=== PATIENT | female | born 1930 | race Caucasian/White ===

== ENCOUNTER 2016-10-25 17:22 | Emergency (ER) | payer MEDICARE ==
[~2016-10-25] VITALS: Ht 160 cm; Wt 60.0 kg
[~2016-10-25 17:22] MED LIST: ASPI-558 PO; CARV3.1232 PO; GABA-215 PO; LANS30CA44 PO; OMEP20TA24 PO; SIMV20TA89 PO; TRAM-277 PO
[2016-10-25 17:25] VITALS: Ht 160 cm; Wt 60.0 kg
[2016-10-25] MEDS ORDERED: NITROGLYCERIN 0.4 MG SUBLINGUAL TABLET SL PRN (17:45)
[2016-10-25] MEDS ORDERED: ASPIRIN 81 MG CHEWABLE TABLET PO ONE (17:45)
--- NOTE | 2016-10-25 17:54 | ERPDOC ---
Departure Disposition Decision Date: Oct 25, 2016 Disposition Decision Time: 18:52 (KIRSTY RODRIGUEZ MD) Disposition: 01 DISCHARGED HOME, SELF-CARE Impression Impression (URIEL HERRERA MD) Impression: Primary Impression: Dyspnea on exertion Additional Impression: Chest tightness Severity: Severe (KIRSTY RODRIGUEZ MD) Condition: Improved Seen By: Physician only (KIRSTY RODRIGUEZ MD) Referrals: ZITA ZAYAS DO (Family) Patient Instructions: Chest Pain (ED), Dyspnea (ED) Problems/Meds/Labs Reviewed?: Yes Medications reviewed and manag: Yes (KIRSTY RODRIGUEZ MD) Additional Instructions: Use Spiriva daily Use albuterol metered-dose inhaler with spacer, 4 puffs up to 4 times daily as needed for shortness of breath or wheezing Tomorrow morning call Dr. Zayas's office to get an appointment in the next 3-5 days. Return to ER immediately for any significant worsening Follow up care ordered?: Yes Mental Status: Alert (KIRSTY RODRIGUEZ MD) Scripts Tiotropium [place] (Spiriva) 1 Cap Inhaler 1 CAP ORAL INH DAILY, #[address] 1 capsule into inhaler , puncture and inhale one time a day. Prov: KIRSTY RODRIGUEZ MD 10/25/16 HPI - Chest Pain General Chief Complaint: Chest Pain Stated Complaint: CHEST PRESSURE Time Seen by Provider: 17:25 Source: patient, family (daughter), RN notes reviewed, old records Exam Limitations: no limitations, other (patient has limited insight) (URIEL HERRERA MD) Time Seen by Provider: 18:26 (KIRSTY RODRIGUEZ MD) HPI - Chest Pain Initial Comments This patient is brought in by her daughter because the patient told her that she had chest pain. The daughter thought it was just today, but the patient says that it has been going on for some days. She actually describes it more as a tightness in her chest. She has been having more dyspnea than usual and has had some chest congestion. She has been putting Vicks on her chest. Today she decided that maybe she should try to get a refill of her Spiriva that was prescribed when she last had a flare in 2013, but the pharmacy wouldn't give her one. She quit smoking in 2010 when she had a CABG, but picked it up again after about a year. She says that she did not have any chest pain when she had her heart attack. The daughter says that if the patient walked out to the parking lot she would have to stop assisted there to rest and catch her breath. No increased swelling in her ankles. Occurred At: home Onset/Timing: Gradual Pain/Severity Scale: Now: 5/10 Activities at Onset/Context: none Location: substernal Quality: tightness Modifying Factors: IMPROVES WITH: exercise, rest Associated Symptoms: shortness of breath (URIEL HERRERA MD) Aspirin Treatment Today: 81 mg x 4, provided by ED (KISRTY RODRIGUEZ MD) Allergies: Coded Allergies: No Known Allergies (Unverified , 10/21/13) Past History Patient Medical History Problem List Updates: CAD GERD with hiatal hernia (URIEL HERRERA MD) Patient Surgical History CABG x 4 2010 Cyst on larynx cataracts OU (URIEL HERRERA MD) Past Medical History Cardiac: CAD, OR GI: GERD, other (hiatal hernia) Musculoskeletal: back pain (URIEL HERRERA MD) Surgical History General: other (cataracts, cyst on larynx) Cardiac: cardiac bypass (URIEL HERRERA MD) Family History Family PMH: FOUND: diabetes, hypertension (URIEL HERRERA MD) Vaccines Hx Influenza Vaccination: Yes (many years ago-"made me sick") Hx Pneumococcal Vaccination: No (URIEL HERRERA MD) Social History Smoking Status: Current every day smoker Does patient use chewing tobac: No Substance Use Type: does not use Alcohol Intake: occasionally Housing: apartment (URIEL HERRERA MD) Record Review Pertinent history updated: Yes (URIEL HERRERA MD) Review of Systems Constitutional Constitutional: DENIES: appetite decrease, chills, dizziness, fever, weakness ( URIEL HERRERA MD) Eyes General: DENIES: pain Lids/Accessories: DENIES: erythema Vision: DENIES: blurring (URIEL HERRERA MD) ENMT Ears: DENIES: pain Hearing: DENIES: hearing loss Balance: DENIES: vertigo Sinuses: DENIES: congestion, rhinorrhea Mouth/Throat: hoarsness (chronic since laryngeal surgery), DENIES: sore throat Teeth: DENIES: pain (URIEL HERRERA MD) Cardiovascular Cardiac: chest pain, dyspnea on exertion, see HPI Vascular: DENIES: pedal edema, unilateral swelling (URIEL HERRERA MD) Pulmonary Respiratory: cough, dyspnea, see HPI (URIEL HERRERA MD) GI Upper Abdomen: DENIES: heartburn/indigestion, nausea, vomiting Lower Abdomen: DENIES: blood in stool, constipation, diarrhea (URIEL HERRERA MD) General: DENIES: dysuria, hematuria Female: DENIES: vaginal discharge (URIEL HERRERA MD) Musculoskeletal General: DENIES: joint pain, pain (URIEL HERRERA MD) Integumentary Skin: DENIES: itching, rash (URIEL HERRERA MD) Neurological General: DENIES: headache, memory disturbances, seizures, syncope (URIEL HERRERA MD) Psychiatric Psychiatric: DENIES: anxiety, depression (URIEL HERRERA MD) Endocrine Endocrine: DENIES: heat/cold intolerance (URIEL HERRERA MD) Hematologic/Lymphatic Hematologic/Lymphatic: DENIES: anemia, easy bruising (URIEL HERRERA MD) All other Systems All Other Systems: Reviewed and Negative (URIEL HERRERA MD) Physical Exam General General Nourishment: well nourished, well developed, appears stated age, no acute distress, adult General Body Habitus: well groomed (URIEL HERRERA MD) Vitals and Pain First Documented Vital Signs Date Time Temp Pulse Resp B/P Pulse Ox O2 Delivery O2 Flow Rate FiO2 10/25/16 17:25 98.0 54 16 160/73 94 Room Air (KIRSTY RODRIGUEZ MD) Vitals and Pain Weight: Kilograms: Height (feet): Height (inches): Triage Pain Scale: (URIEL HERRERA MD) RN VS reviewed by Provider: Yes (URIEL HERRERA MD) Normal Exams: Head: Normocephalic w/o trauma Eyes: Pupils are PERRLA w/ EOMI, No scleral icterus, irritation, or foreign bodies noted ENMT: No facial trauma, nasal exudates, pharyngeal erythema, or exudates are noted Neck: Full range of motion, without adenopathy, JVD, bruits or thyromegaly CV: Regular rate and rhythm, without murmur or gallop, Pulses 2+ all extremities, capillary refill, <2 seconds all ext., no pedal edema noted Abdomen: Bowel sounds positive, soft, non-tender, non-distended, no hepatosplenomegaly, masses or bruits noted Musculoskeletal: No tenderness, or deformity noted, good range of motion, all extremities Integumentary: No rashes, hives, or bruising noted, hair and nails, without abnormality Neurologic: Patient is alert, and oriented, cranial nerves, motor/sensory/ cerebellar, exams w/o gross deficits, to observation Psychiatric: Patient exhibits, appropriate attention, emotion and affect (URIEL HERRERA MD) Respiratory (brief) Respiratory: FOUND: equal bilaterally, symmetrical, wheezes (expiratory) (URIEL HERRERA MD) Differential Diagnoses Considering: GERD, Pneumonia, Other (COPD exacerbation) (URIEL HERRERA MD) Progress Results/Orders Orders Procedure Category Date Status Time Cbc W/Auto LAB 10/25/16 Complete Diff-Reflex Manual 17:33 Bmp - Basic Metabolic LAB 10/25/16 Complete Panel 17:33 Probnp LAB 10/25/16 Complete 17:33 Troponin I W LAB 10/25/16 Complete Hemolysis Index 17:33 INR LAB 10/25/16 Complete 17:33 EKG EKG 10/25/16 Taken 17:33 Chest 1 View RAD 10/25/16 Taken 17:33 Iv Lock (Ed Only) EDM 10/25/16 Transmitted 17:33 Aspirin (Asa) PHA 10/25/16 Complete 17:45 Nitroglycerin PHA 10/25/16 In Process (Nitrostat) 17:45 Albuterol/Ipratropium PHA 10/25/16 Complete (Duoneb) 18:15 Albuterol (Ventolin PHA 10/25/16 Complete Hfa) 18:45 Inhaler Assist Device PHA 10/25/16 Complete - Spacer (Opticham 18:45 (KIRSTY RODRIGUEZ MD) Lab Results Laboratory Tests Test 10/25/16 18:01 White Blood Count 9.3T/MM3 Red Blood Count 5.04M/MM3 Hemoglobin 14.6GM/DL Hematocrit 44.6% Mean Corpuscular Volume 88.5UM3 Mean Corpuscular Hemoglobin 29.0UUG Mean Corpuscular Hemoglobin Concent 32.7GM/DL RDW Standard Deviation 48.7FL Platelet Count 271T/MM3 Mean Platelet Volume 9.9UM3 Immature Granulocyte % (Auto) 0.1% Neutrophils (%) (Auto) 55.3% Lymphocytes (%) (Auto) 33.9% Monocytes (%) (Auto) 8.5% Eosinophils (%) (Auto) 1.9% Basophils (%) (Auto) 0.3% Absolute Immature Granulocyte (auto 0.01T/MM3 Absolute Neutrophils (auto) 5.1T/MM3 Absolute Lymphocytes (auto) 3.1T/MM3 Absolute Monocytes (auto) 0.8T/MM3 Absolute Eosinophils (auto) 0.2T/MM3 Absolute Basophils (auto) 0.0T/MM3 Prothromb Time International Ratio 1.07 Turbidity < 20 Sodium Level 142MEQ/L Potassium Level 4.1MEQ/L Chloride Level 109MEQ/L Carbon Dioxide Level 26MEQ/L Anion Gap 7MEQ/L Blood Urea Nitrogen 13.0MG/DL Creatinine 0.7MG/DL Glomerular Filtration Rate Calc 80 BUN/Creatinine Ratio 19RATIO Glucose Level 140MG/DL Calculated Osmolality 275MOSM/KG Calcium Level 9.4MG/DL Icterus Index < 2 Troponin I < 0.012ng/ml ZO-Ofc-A-Type Natriuretic Peptide 739PG/ML Chemistry Specimen Hemolysis < 15 (KIRSTY RODRIGUEZ MD) Lab Results Laboratory Tests Test 10/25/16 18:01 White Blood Count 9.3T/MM3 Red Blood Count 5.04M/MM3 Hemoglobin 14.6GM/DL Hematocrit 44.6% Mean Corpuscular Volume 88.5UM3 Mean Corpuscular Hemoglobin 29.0UUG Mean Corpuscular Hemoglobin Concent 32.7GM/DL RDW Standard Deviation 48.7FL Platelet Count 271T/MM3 Mean Platelet Volume 9.9UM3 Immature Granulocyte % (Auto) 0.1% Neutrophils (%) (Auto) 55.3% Lymphocytes (%) (Auto) 33.9% Monocytes (%) (Auto) 8.5% Eosinophils (%) (Auto) 1.9% Basophils (%) (Auto) 0.3% Absolute Immature Granulocyte (auto 0.01T/MM3 Absolute Neutrophils (auto) 5.1T/MM3 Absolute Lymphocytes (auto) 3.1T/MM3 Absolute Monocytes (auto) 0.8T/MM3 Absolute Eosinophils (auto) 0.2T/MM3 Absolute Basophils (auto) 0.0T/MM3 Prothromb Time International Ratio 1.07 Turbidity Pending Sodium Level Pending Potassium Level Pending Chloride Level Pending Carbon Dioxide Level Pending Anion Gap Pending Blood Urea Nitrogen Pending Creatinine Pending Glomerular Filtration Rate Calc Pending BUN/Creatinine Ratio Pending Glucose Level Pending Calculated Osmolality Pending Calcium Level Pending Icterus Index Pending Troponin I Pending KT-Gly-I-Type Natriuretic Peptide Pending Chemistry Specimen Hemolysis Pending (URIEL HERRERA MD) Medications Current ED Medications Aspirin (ASA) 324 mg O ONCE PO ; Start 10/25/16 at 17:45; Stop 10/25/16 at 17: 46; Status DC Nitroglycerin (Nitrostat) 0.4 mg Q5MIN PRN SL CHEST PAIN; Start 10/25/16 at 17: 45 Albuterol/ Ipratropium (Duoneb) 3 ml O ONCE AEROSOL Last administered on t 18:15; Start 10/25/16 at 18:15; Stop 10/25/16 at 18:16; Status DC Albuterol (Ventolin Hfa) 4 puff O ONCE ORAL INH ; Start 10/25/16 at 18:45; Stop 10/25/16 at 18:46; Status DC Device (Optichamber) 1 each O ONCE MC ; Start 10/25/16 at 18:45; Stop 10/25/16 at 18:46; Status DC (KIRSTY RODRIGUEZ MD) Progress Progress Initial workup started -- WBC not elevated. CXR shows no definite infiltrates. Duoneb given for tightness. Care transferred to Dr Rodriguez. (URIEL HERRERA MD) Progress CBC, CMP, troponin, proBNP all essentially normal. ProBNP is slightly elevated, patient patient has no listed baseline for comparison She symptoms are essentially gone at rest. Patient is dismissed with albuterol, Spiriva, and instructions to follow up with this week or next week for recheck and possible referral back to cardiology as needed. (KIRSTY RODRIGUEZ MD) URIEL HERRERA MD Oct 25, 2016 17:54 KIRSTY RODRIGUEZ MD Oct 25, 2016 18:54
[2016-10-25] MEDS ORDERED: CARV6.252 PO (17:55)
[2016-10-25] MEDS ORDERED: TRAZ-170 PO (17:55)
[2016-10-25 18:09] LABS: BASOPHILS % (AUTO) 0.3 % (0-2); EOSINOPHILS # (AUTO) 0.2 T/MM3 (0-0.5); EOSINOPHILS % (AUTO) 1.9 % (0-4); HCT - HEMATOCRIT 44.6 % (36-46); HGB - HEMOGLOBIN 14.6 GM/DL (12-16); IMMATURE GRANULOCYTE # (AUTO) 0.01 T/MM3 (0.00-0.03); IMMATURE GRANULOCYTE % (AUTO) 0.1 % (0.0-0.5); LYMPHOCYTES # (AUTO) 3.1 T/MM3 (1-4.8); LYMPHOCYTES % (AUTO) 33.9 % (23-45); MEAN CORPUSCULAR HGB CONC(MCHC 32.7 GM/DL (31-37); MEAN CORPUSCULAR VOLUME 88.5 UM3 (80-100); MEAN PLATELET VOLUME 9.9 UM3 (9.4-12.4); MONOCYTES # (AUTO) 0.8 T/MM3 (0-0.8); MONOCYTES % (AUTO) 8.5 % (0-9.0); NEUTROPHILS #(AUTO)-ABSOLUTE 5.1 T/MM3 (1.8-7.7); NEUTROPHILS % (AUTO) 55.3 % (33-66); RED BLOOD COUNT 5.04 M/MM3 (4.00-5.20); WBC - WHITE BLOOD COUNT 9.3 T/MM3 (4.5-11.0)
[2016-10-25 18:14] LABS: INR 1.07 (0.76-1.04); PROTHROMBIN TIME 11.7 SEC (9.31-12.49)
[2016-10-25] MEDS ORDERED: ALBUTEROL/IPRATROPIUM INHAL. 2.5mg-0.5mg/3ml Neb. AEROSOL ONE (18:15)
[2016-10-25 18:21] LABS: ANION GAP 7 MEQ/L (5-15); BUN/CREATININE RATIO 19 RATIO (6-26); CALCIUM 9.4 MG/DL (8.4-10.2); CHLORIDE 109 MEQ/L (98-107); CO2 - CARBON DIOXIDE 26 MEQ/L (22-30); CREATININE 0.7 MG/DL (0.7-1.2); GLOMERULAR FILTRATION RATE 80; GLUCOSE 140 MG/DL (65-110); POTASSIUM 4.1 MEQ/L (3.6-5); SODIUM 142 MEQ/L (134-144)
[2016-10-25] MEDS ORDERED: TIOT18CA3 ORAL INH (18:35)
[2016-10-25 18:39] LABS: PROBNP 739 PG/ML (0-175)
[2016-10-25] MEDS ORDERED: ALBUTEROL HFA INHALER 8gm ORAL INH ONE (18:45)
[2016-10-25] MEDS ORDERED: INHALER ASSIST DEVICE (Optichamber) MC ONE (18:45)
--- NOTE | 2016-10-25 19:04 | NUR ---
RT RT IN TO DO SOME TEACHING.
[2016-10-25 19:10] VITALS: BP 133/66; PULSE 54; RESP 18; TEMP 98; O2SAT 93
--- NOTE | 2016-10-26 08:04 | DI ---
Indication: ITS.REASON: chest pain PROCEDURE: CHEST 1 VIEW: Encounter: Initial Comparison: October 21, 2013 Findings: Small amount of left basilar probable atelectasis. Lungs are otherwise grossly stable and clear. No pneumothorax or effusion. Prior CABG. Heart size and mediastinal contours are stable. Hiatal hernia. Tortuous thoracic aorta. Pulmonary vascularity is stable. Impression: Possible mild left basilar atelectasis. .
== END 2016-10-25 19:10 | disposition home or self-care (01) ==
LOC: ED 17:22
DX: R07.89 Other chest pain (principal); R06.09 Other forms of dyspnea; R09.89 Other specified symptoms and signs involving the circulatory and respiratory systems; F17.200 Nicotine dependence, unspecified, uncomplicated
CPT/HCPCS: 71010; 80048; 83880; 84484; 85025; 85610; 93005; 94640; 94664; 99284; A9270